=== PATIENT | female | born 1925 | race African-American/Black ===

== ENCOUNTER 2016-03-24 14:56 | Inpatient (IN) | payer MEDICARE, BC ==
[~2016-03-24] VITALS: Ht 162.6 cm; Wt 83.9 kg
[~2016-03-24 14:56] MED LIST: ASPI-1035 PO; ATOR20TA PO; COR12 PO; DONE5TAB3 PO; FURO20TA PO; INSU100C3 SUBCUT; LANTUSUD SUBCUT
[2016-03-24] MEDS ORDERED: METHYLPREDNISOLONE SOD SUCC 125 MG/2 ML VIAL IV STA (15:01)
[2016-03-24] MEDS ORDERED: IPRATROPIUM/ALBUTEROL 0.5-3(2.5)MG/3ML NEB HHN ONE (15:15)
[2016-03-24 15:27] LABS: BASOPHILS % 0.3 % (0.0-2.0); EOSINOPHILS % 2.8 % (0.0-5.0); HEMATOCRIT. 36.7 % (36.0-48.0); HEMOGLOBIN. 11.8 g/dL (12.0-16.0); LYMPHOCYTES % 29.3 % (20.0-50.0); MEAN CORPUSCULAR HEMOGLOBIN 30.3 pg (28.0-32.0); MEAN CORPUSCULAR HGB CONC 32.1 g/dL (31.0-37.0); MEAN CORPUSCULAR VOLUME 94.3 fL (81.0-99.0); MEAN PLATELET VOLUME 10.2 fl (7.4-10.4); MONOCYTES % 4.5 % (2.0-8.0); NEUTROPHILS % 63.1 % (40.0-76.0); PLATELET 202 x1000/uL (130-400); RED BLOOD CELL COUNT 3.89 mill/uL (4.2-5.4); RED CELL DISTRIBUTION WIDTH 17.8 % (11.6-14.6); WHITE BLOOD COUNT 17.4 x1000/uL (4.5-11.0)
[2016-03-24 15:34] LABS: ALBUMIN 2.6 g/dL (3.4-5.0); ANION GAP 14; CARBON DIOXIDE 22 mEq/L (21-32); CHLORIDE 112 mEq/L (98-107); INDEX HEMOLYSI 1 (1-3); INDEX ICTERIC 1 (1-4); INDEX LIPEMIC 1 (1-3); UREA NITROGEN BLOOD 14 mg/dL (7-21)
[2016-03-24 15:42] LABS: ALANINE AMINOTRANSFERASE 18 IU/L (13-61); NT PRO B-TYPE NATRIURETIC PEP 2688 pg/mL (5-125); TROPONIN I 0.12 ng/mL (0.00-0.04); eGFR 57 mL/min (>60)
[2016-03-24 15:43] LABS: D-DIMER 4.81 mg/L FEU (<0.50); INR 1.1; PARTIAL THROMBOPLASTIN TIME 27.1 sec (24.0-34.0); PROTHROMBIN TIME 11.3 sec
[2016-03-24 15:44] LABS: LACTIC ACID 4.6 mmol/L (0.4-2.0)
[2016-03-24 19:06] LABS: BG BASE EXCESS -3.1 mmol/L (-2.0-2.0); BG BILEVEL POS AIRWAY PRESSURE 15/5; BG CARBOXYHEMOGLOBIN 0.3 % (0.5-1.5); BG DEOXYHEMOGLOBIN 1.2 % (0.0-5.0); BG FRACTION INSPIRED OXYGEN 50; BG HCO3 ACT 21.3 mmol/L (22.0-26.0); BG METHEMOGLOBIN 0.5 % (0.0-1.5); BG OXYGEN SATURATION 98.8 % (92.0-98.5); BG PCO2 36.1 mmHg (35.0-45.0); BG PH 7.389 (7.350-7.450); BG PO2 158.9 mmHg (75.0-100.0); BG SAMPLE SITE LEFT RADIAL; BG TOTAL HEMOGLOBIN 11.9 g/dL (12.0-18.0); BG VENT MODE MASK - BIPAP; BG VENT RATE 14 set
[2016-03-24 21:05] LABS: CLARITY URINE CLEAR (CLEAR); COLOR URINE YELLOW (YELLOW); GLUCOSE URINE TRACE (NEGATIVE); KETONES URINE TRACE (NEGATIVE); LEUKOCYTE ESTERASE URINE NEGATIVE (NEGATIVE); NITRITE URINE NEGATIVE (NEGATIVE); OCCULT BLOOD URINE NEGATIVE (NEGATIVE); PH URINE 5.5 (4.5-8.0); PROTEIN URINE 2+ (NEGATIVE); SPECIFIC GRAVITY URINE 1.018 (1.005-1.030); UROBILINOGEN URINE 0.2 E.U./dL (0.2-1.0)
[2016-03-24 21:32] LABS: BACTERIA URINE 1+
[2016-03-24 21:42] LABS: RBC URINE 0-2 /hpf (0-2); WBC URINE 0-2 /hpf (0-2)
[2016-03-24 21:43] LABS: MUCUS URINE TRACE /lpf (< = 2+); SQUAMOUS EPITHELIAL CELL URINE 1+ /lpf (RARE/1+)
[2016-03-25] VITALS (11 sets, daily range): BP systolic 97–139; BP diastolic 51–98
[2016-03-25] MEDS ORDERED: CLONIDINE 0.1MG TABLET PO PRN (02:45)
[2016-03-25] MEDS ORDERED: IPRATROPIUM/ALBUTEROL 0.5-3(2.5)MG/3ML NEB HHN PRN (02:45)
[2016-03-25] MEDS ORDERED: ACETAMINOPHEN 325MG TABLET PO PRN (02:45)
[2016-03-25] MEDS: DIPHENHYDRAMINE 50MG/ML VIAL IV PRN ×2 (03:15→21:46)
[2016-03-25] MEDS: METHYLPREDNISOLONE SOD SUCC 40 MG/ML VIAL IV SCH ×3 (03:37→18:21)
[2016-03-25] MEDS: IPRATROPIUM/ALBUTEROL 0.5-3(2.5)MG/3ML NEB HHN SCH ×5 (04:27→19:53)
[2016-03-25 07:12] LABS: BG METHEMOGLOBIN 0.3 % (0.0-1.5); BG OXYHEMOGLOBIN 89.7 % (94.0-97.0); BG PCO2 32.7 mmHg (35.0-45.0); BG PH 7.405 (7.350-7.450); BG PO2 58.3 mmHg (75.0-100.0); BG SAMPLE SITE RIGHT RADIAL; BG TOTAL HEMOGLOBIN 9.6 g/dL (12.0-18.0); BG VENT MODE NASAL CANNULA
[2016-03-25] MEDS: BLOOD SUGAR DIAGNOSTIC STRIP TEST SCH ×4 (07:30→21:44)
[2016-03-25] MEDS: CARVEDILOL 12.5MG TABLET PO SCH ×2 (09:00→09:05)
[2016-03-25] MEDS: ENOXAPARIN 40MG/0.4ML SYR SUBCUT SCH (09:04)
[2016-03-25] MEDS: ATORVASTATIN CALCIUM 20MG TABLET PO SCH (09:05)
[2016-03-25] MEDS: DONEPEZIL HCL 5MG TABLET PO SCH (09:05)
[2016-03-25] MEDS: ASPIRIN 81MG EC TABLET PO SCH (09:05)
[2016-03-25] MEDS: INSULIN LISPRO 100 UNITS/ML SUBCUT SCH ×3 (09:07→18:29)
[2016-03-25] MEDS: INSULIN DETEMIR UD 100 UNITS/ML SYR SUBCUT SCH ×2 (09:08→09:19)
[2016-03-25 09:46] LABS: BASOPHILS % 0.2 % (0.0-2.0); EOSINOPHILS % 0.1 % (0.0-5.0); HEMATOCRIT. 30.6 % (36.0-48.0); LYMPHOCYTES % 21.4 % (20.0-50.0); MEAN CORPUSCULAR HEMOGLOBIN 30.6 pg (28.0-32.0); MEAN CORPUSCULAR HGB CONC 32.6 g/dL (31.0-37.0); MEAN CORPUSCULAR VOLUME 93.7 fL (81.0-99.0); MEAN PLATELET VOLUME 10.5 fl (7.4-10.4); MONOCYTES % 1.4 % (2.0-8.0); NEUTROPHILS % 76.9 % (40.0-76.0); PLATELET 179 x1000/uL (130-400); RED BLOOD CELL COUNT 3.27 mill/uL (4.2-5.4); RED CELL DISTRIBUTION WIDTH 18.2 % (11.6-14.6); WHITE BLOOD COUNT 13.5 x1000/uL (4.5-11.0)
[2016-03-25 10:13] LABS: ANION GAP 15; CARBON DIOXIDE 22 mEq/L (21-32); CHLORIDE 110 mEq/L (98-107); INDEX HEMOLYSI 1 (1-3); INDEX ICTERIC 1 (1-4); INDEX LIPEMIC 1 (1-3); MAGNESIUM 2.3 mg/dL (1.8-2.4); PHOSPHORUS 3.6 mg/dL (2.5-4.9); UREA NITROGEN BLOOD 18 mg/dL (7-21); eGFR > 60 mL/min (>60)
[2016-03-25] MEDS ORDERED: LACTULOSE 20G/30ML UDC PO PRN (13:15)
[2016-03-25] MEDS: PREGABALIN 50 MG CAPSULE PO SCH ×2 (14:41→21:44)
[2016-03-25] MEDS: DOCUSATE SODIUM 100MG CAPSULE PO SCH (17:00)
[2016-03-26] VITALS (14 sets, daily range): BP systolic 94–139; BP diastolic 46–83
[2016-03-26] MEDS ORDERED: METHYLPREDNISOLONE SOD SUCC 40 MG/ML VIAL IV SCH (03:00)
[2016-03-26] MEDS: METHYLPREDNISOLONE SOD SUCC 40 MG/ML VIAL IV SCH ×3 (03:16→21:29)
[2016-03-26] MEDS: IPRATROPIUM/ALBUTEROL 0.5-3(2.5)MG/3ML NEB HHN SCH ×8 (04:00→21:20)
[2016-03-26 06:31] LABS: BASOPHILS % 0.3 % (0.0-2.0); EOSINOPHILS % 0.1 % (0.0-5.0); HEMATOCRIT. 38.1 % (36.0-48.0); HEMOGLOBIN. 11.8 g/dL (12.0-16.0); LYMPHOCYTES % 16.9 % (20.0-50.0); MEAN CORPUSCULAR HEMOGLOBIN 30.7 pg (28.0-32.0); MEAN CORPUSCULAR VOLUME 98.9 fL (81.0-99.0); MEAN PLATELET VOLUME 10.5 fl (7.4-10.4); MONOCYTES % 4.4 % (2.0-8.0); NEUTROPHILS % 78.3 % (40.0-76.0); PLATELET 201 x1000/uL (130-400); RED BLOOD CELL COUNT 3.85 mill/uL (4.2-5.4); RED CELL DISTRIBUTION WIDTH 19.6 % (11.6-14.6)
[2016-03-26] MEDS: PREGABALIN 50 MG CAPSULE PO SCH ×3 (06:37→21:29)
[2016-03-26 07:09] LABS: CHLORIDE 108 mEq/L (98-107); INDEX HEMOLYSI 2 (1-3); INDEX ICTERIC 1 (1-4); INDEX LIPEMIC 1 (1-3)
[2016-03-26 07:30] LABS: ANION GAP 18; CALCIUM 8.2 mg/dL (8.5-10.1); CARBON DIOXIDE 15 mEq/L (21-32); TROPONIN I 0.08 ng/mL (0.00-0.04); UREA NITROGEN BLOOD 26 mg/dL (7-21); eGFR > 60 mL/min (>60)
[2016-03-26] MEDS: BLOOD SUGAR DIAGNOSTIC STRIP TEST SCH ×4 (07:47→21:50)
[2016-03-26] MEDS ORDERED: FUROSEMIDE 40MG TABLET PO SCH (09:00)
[2016-03-26] MEDS: DOCUSATE SODIUM 100MG CAPSULE PO SCH ×2 (09:16→17:37)
[2016-03-26] MEDS: ATORVASTATIN CALCIUM 20MG TABLET PO SCH (09:16)
[2016-03-26] MEDS: DONEPEZIL HCL 5MG TABLET PO SCH (09:16)
[2016-03-26] MEDS: ASPIRIN 81MG EC TABLET PO SCH (09:16)
[2016-03-26] MEDS: LISINOPRIL 2.5MG TABLET PO SCH (09:16)
[2016-03-26] MEDS: ENOXAPARIN 40MG/0.4ML SYR SUBCUT SCH (09:17)
[2016-03-26] MEDS: INSULIN LISPRO 100 UNITS/ML SUBCUT SCH ×3 (09:18→17:38)
[2016-03-26] MEDS: INSULIN DETEMIR UD 100 UNITS/ML SYR SUBCUT SCH ×2 (09:18→21:44)
[2016-03-26] MEDS ORDERED: LORAZEPAM 2MG/ML CPJ IV PRN (09:59)
[2016-03-26] MEDS ORDERED: INSULIN LISPRO 100 UNITS/ML SUBCUT NR (12:30)
[2016-03-26] MEDS ORDERED: FUROSEMIDE 40MG/4ML VIAL IVP SCH (12:40)
[2016-03-27] VITALS (14 sets, daily range): BP systolic 103–130; BP diastolic 52–82
[2016-03-27] MEDS: IPRATROPIUM/ALBUTEROL 0.5-3(2.5)MG/3ML NEB HHN SCH ×7 (00:13→20:18)
[2016-03-27] MEDS: PREGABALIN 50 MG CAPSULE PO SCH ×3 (05:04→21:18)
[2016-03-27] MEDS: METHYLPREDNISOLONE SOD SUCC 40 MG/ML VIAL IV SCH ×3 (05:04→21:19)
[2016-03-27] MEDS: BLOOD SUGAR DIAGNOSTIC STRIP TEST SCH ×4 (06:42→21:19)
[2016-03-27] MEDS: INSULIN LISPRO 100 UNITS/ML SUBCUT SCH (06:48)
[2016-03-27] MEDS ORDERED: LIDOCAINE HCL/PF 1% 2ML VIAL ONE ×2 (07:00)
[2016-03-27] MEDS: MAGNESIUM/ALUMINUM HYDROXIDE/SIMETHICONE 30ML UDC PO PRN ×3 (07:32→08:31)
[2016-03-27] MEDS: ASPIRIN 81MG EC TABLET PO SCH (08:31)
[2016-03-27] MEDS: DOCUSATE SODIUM 100MG CAPSULE PO SCH ×2 (08:31→17:24)
[2016-03-27] MEDS: ENOXAPARIN 40MG/0.4ML SYR SUBCUT SCH (08:31)
[2016-03-27] MEDS: FUROSEMIDE 40MG/4ML VIAL IVP SCH (08:31)
[2016-03-27] MEDS: DONEPEZIL HCL 5MG TABLET PO SCH (08:32)
[2016-03-27] MEDS: ATORVASTATIN CALCIUM 20MG TABLET PO SCH (08:32)
[2016-03-27] MEDS: LISINOPRIL 2.5MG TABLET PO SCH (08:44)
[2016-03-27] MEDS ORDERED: PREDNISONE 20MG TABLET PO SCH (09:00)
[2016-03-27 09:30] LABS: BG BASE EXCESS 2.1 mmol/L (-2.0-2.0); BG CARBOXYHEMOGLOBIN 0.6 % (0.5-1.5); BG DEOXYHEMOGLOBIN 7.1 % (0.0-5.0); BG FRACTION INSPIRED OXYGEN 32; BG HCO3 ACT 26.1 mmol/L (22.0-26.0); BG METHEMOGLOBIN 0.4 % (0.0-1.5); BG OXYGEN SATURATION 92.8 % (92.0-98.5); BG OXYHEMOGLOBIN 91.9 % (94.0-97.0); BG PCO2 38.5 mmHg (35.0-45.0); BG PH 7.449 (7.350-7.450); BG PO2 66.5 mmHg (75.0-100.0); BG SAMPLE SITE RIGHT RADIAL; BG TOTAL HEMOGLOBIN 12.6 g/dL (12.0-18.0); BG VENT MODE NASAL CANNULA
[2016-03-27] MEDS ORDERED: ONDANSETRON HCL 4MG/2ML VIAL IV PRN (09:30)
[2016-03-27] MEDS: INSULIN DETEMIR UD 100 UNITS/ML SYR SUBCUT SCH (10:07)
[2016-03-27 10:53] LABS: BASOPHILS % 0.2 % (0.0-2.0); HEMATOCRIT. 33.5 % (36.0-48.0); HEMOGLOBIN. 10.9 g/dL (12.0-16.0); LYMPHOCYTES % 10.4 % (20.0-50.0); MEAN CORPUSCULAR HGB CONC 32.4 g/dL (31.0-37.0); MEAN CORPUSCULAR VOLUME 92.6 fL (81.0-99.0); MEAN PLATELET VOLUME 10.6 fl (7.4-10.4); MONOCYTES % 5.3 % (2.0-8.0); NEUTROPHILS % 84.1 % (40.0-76.0); PLATELET 221 x1000/uL (130-400); RED BLOOD CELL COUNT 3.61 mill/uL (4.2-5.4); RED CELL DISTRIBUTION WIDTH 17.8 % (11.6-14.6); WHITE BLOOD COUNT 17.4 x1000/uL (4.5-11.0)
[2016-03-27 11:01] LABS: ANION GAP 11; CALCIUM 8.4 mg/dL (8.5-10.1); CARBON DIOXIDE 32 mEq/L (21-32); CHLORIDE 104 mEq/L (98-107); INDEX HEMOLYSI 1 (1-3); INDEX ICTERIC 1 (1-4); INDEX LIPEMIC 1 (1-3); MAGNESIUM 2.3 mg/dL (1.8-2.4); PHOSPHORUS 3.1 mg/dL (2.5-4.9); UREA NITROGEN BLOOD 26 mg/dL (7-21); eGFR > 60 mL/min (>60)
[2016-03-27] MEDS ORDERED: CALCIUM CARBONATE 500MG TABLET CHEW PO SCH (12:30)
[2016-03-27] MEDS ORDERED: INSULIN LISPRO 100 UNITS/ML SUBCUT NR (12:45)
[2016-03-27] MEDS: PANTOPRAZOLE SODIUM 40 MG/VIAL IV SCH (12:53)
[2016-03-27] MEDS: CALCIUM CARBONATE 500MG TABLET CHEW PO SCH ×2 (17:24→21:19)
[2016-03-27] MEDS: SPIRONOLACTONE 25MG TABLET PO SCH (17:24)
[2016-03-27] MEDS: MAGNESIUM HYDROXIDE 400MG/5ML 30ML UDC PO PRN (21:18)
[2016-03-27] MEDS: DIPHENHYDRAMINE 50MG/ML VIAL IV PRN (21:19)
[2016-03-27] MEDS: ISOSORB DINIT/HYDRALAZINE HCL 20/37.5MG TABLET PO SCH (21:19)
[2016-03-27] MEDS ORDERED: INSULIN DETEMIR UD 100 UNITS/ML SYR SUBCUT SCH (22:00)
[2016-03-28] VITALS (12 sets, daily range): BP systolic 94–134; BP diastolic 26–80
[2016-03-28] MEDS: IPRATROPIUM/ALBUTEROL 0.5-3(2.5)MG/3ML NEB HHN SCH ×8 (00:01→23:04)
[2016-03-28] MEDS: PREGABALIN 50 MG CAPSULE PO SCH ×3 (05:29→21:20)
[2016-03-28] MEDS: METHYLPREDNISOLONE SOD SUCC 40 MG/ML VIAL IV SCH ×3 (05:30→21:20)
[2016-03-28] MEDS: ISOSORB DINIT/HYDRALAZINE HCL 20/37.5MG TABLET PO SCH ×3 (05:31→21:20)
[2016-03-28] MEDS: CALCIUM CARBONATE 500MG TABLET CHEW PO SCH ×4 (07:36→21:20)
[2016-03-28] MEDS: BLOOD SUGAR DIAGNOSTIC STRIP TEST SCH ×3 (07:37→17:40)
[2016-03-28 07:39] LABS: BASOPHILS % 0.1 % (0.0-2.0); HEMOGLOBIN. 9.6 g/dL (12.0-16.0); LYMPHOCYTES % 14.9 % (20.0-50.0); MEAN CORPUSCULAR HEMOGLOBIN 30.1 pg (28.0-32.0); MEAN CORPUSCULAR HGB CONC 32.1 g/dL (31.0-37.0); MEAN CORPUSCULAR VOLUME 93.9 fL (81.0-99.0); MEAN PLATELET VOLUME 10.8 fl (7.4-10.4); MONOCYTES % 4.7 % (2.0-8.0); NEUTROPHILS % 80.3 % (40.0-76.0); PLATELET 199 x1000/uL (130-400); RED CELL DISTRIBUTION WIDTH 18.1 % (11.6-14.6); WHITE BLOOD COUNT 11.5 x1000/uL (4.5-11.0)
[2016-03-28 08:29] LABS: CALCIUM 8.5 mg/dL (8.5-10.1); MAGNESIUM 2.6 mg/dL (1.8-2.4); PHOSPHORUS 3.7 mg/dL (2.5-4.9)
[2016-03-28] MEDS: INSULIN LISPRO 100 UNITS/ML SUBCUT SCH ×3 (08:52→17:49)
[2016-03-28] MEDS: PANTOPRAZOLE SODIUM 40 MG/VIAL IV SCH (08:54)
[2016-03-28] MEDS: DOCUSATE SODIUM 100MG CAPSULE PO SCH ×2 (08:54→16:18)
[2016-03-28] MEDS: FUROSEMIDE 40MG/4ML VIAL IVP SCH (08:54)
[2016-03-28] MEDS: LISINOPRIL 2.5MG TABLET PO SCH (08:55)
[2016-03-28] MEDS: DONEPEZIL HCL 5MG TABLET PO SCH (08:55)
[2016-03-28] MEDS: ASPIRIN 81MG EC TABLET PO SCH (08:55)
[2016-03-28] MEDS: ATORVASTATIN CALCIUM 20MG TABLET PO SCH (08:55)
[2016-03-28] MEDS: ENOXAPARIN 40MG/0.4ML SYR SUBCUT SCH (08:56)
[2016-03-28] MEDS: SPIRONOLACTONE 25MG TABLET PO SCH (08:56)
[2016-03-28] MEDS ORDERED: INSULIN DETEMIR UD 100 UNITS/ML SYR SUBCUT SCH ×2 (10:00→22:00)
[2016-03-28] MEDS ORDERED: INSULIN LISPRO 100 UNITS/ML SUBCUT SCH ×3 (10:15→18:00)
[2016-03-28] MEDS: GUAIFENESIN 200MG/10ML SUGAR FREE UDC PO PRN ×2 (10:46→19:25)
[2016-03-28] MEDS ORDERED: SODIUM POLYSTYRENE SULFONATE 15 G/60 ML BOT PO SCH (13:45)
[2016-03-28] MEDS: INSULIN DETEMIR UD 100 UNITS/ML SYR SUBCUT SCH (21:21)
[2016-03-28] MEDS: DIPHENHYDRAMINE 50MG/ML VIAL IV PRN (22:30)
[2016-03-29] VITALS (12 sets, daily range): BP systolic 104–131; BP diastolic 59–71
[2016-03-29] MEDS: IPRATROPIUM/ALBUTEROL 0.5-3(2.5)MG/3ML NEB HHN SCH ×5 (02:04→20:50)
[2016-03-29] MEDS: PREGABALIN 50 MG CAPSULE PO SCH ×3 (06:36→21:11)
[2016-03-29] MEDS: METHYLPREDNISOLONE SOD SUCC 40 MG/ML VIAL IV SCH ×3 (06:36→21:10)
[2016-03-29] MEDS: CALCIUM CARBONATE 500MG TABLET CHEW PO SCH ×4 (06:37→21:10)
[2016-03-29] MEDS: ISOSORB DINIT/HYDRALAZINE HCL 20/37.5MG TABLET PO SCH ×2 (06:38→17:00)
[2016-03-29 06:58] LABS: BASOPHILS % 0.1 % (0.0-2.0); HEMATOCRIT. 30.6 % (36.0-48.0); LYMPHOCYTES % 16.8 % (20.0-50.0); MEAN CORPUSCULAR HEMOGLOBIN 30.2 pg (28.0-32.0); MEAN CORPUSCULAR HGB CONC 32.6 g/dL (31.0-37.0); MEAN CORPUSCULAR VOLUME 92.7 fL (81.0-99.0); MEAN PLATELET VOLUME 10.8 fl (7.4-10.4); MONOCYTES % 4.9 % (2.0-8.0); NEUTROPHILS % 78.2 % (40.0-76.0); PLATELET 210 x1000/uL (130-400); RED CELL DISTRIBUTION WIDTH 17.8 % (11.6-14.6)
[2016-03-29 07:13] LABS: ANION GAP 12; CALCIUM 8.5 mg/dL (8.5-10.1); CARBON DIOXIDE 33 mEq/L (21-32); CHLORIDE 96 mEq/L (98-107); INDEX HEMOLYSI 1 (1-3); INDEX ICTERIC 1 (1-4); INDEX LIPEMIC 1 (1-3); UREA NITROGEN BLOOD 34 mg/dL (7-21); eGFR > 60 mL/min (>60)
[2016-03-29] MEDS: FAMOTIDINE 20MG TABLET PO SCH (08:43)
[2016-03-29] MEDS: DOCUSATE SODIUM 100MG CAPSULE PO SCH ×2 (08:43→17:49)
[2016-03-29] MEDS: ATORVASTATIN CALCIUM 20MG TABLET PO SCH (08:43)
[2016-03-29] MEDS: ENOXAPARIN 40MG/0.4ML SYR SUBCUT SCH (08:43)
[2016-03-29] MEDS: FUROSEMIDE 40MG/4ML VIAL IVP SCH (08:43)
[2016-03-29] MEDS: ASPIRIN 81MG EC TABLET PO SCH (08:43)
[2016-03-29] MEDS: DONEPEZIL HCL 5MG TABLET PO SCH (08:44)
[2016-03-29] MEDS: INSULIN LISPRO 100 UNITS/ML SUBCUT SCH ×3 (08:45→18:45)
[2016-03-29] MEDS: LISINOPRIL 2.5MG TABLET PO SCH (08:46)
[2016-03-29] MEDS: BLOOD SUGAR DIAGNOSTIC STRIP TEST SCH ×3 (12:39→21:11)
[2016-03-29] MEDS: MAGNESIUM HYDROXIDE 400MG/5ML 30ML UDC PO PRN (17:49)
[2016-03-29] MEDS: INSULIN DETEMIR UD 100 UNITS/ML SYR SUBCUT SCH (21:16)
[2016-03-29] MEDS: DIPHENHYDRAMINE 50MG/ML VIAL IV PRN (22:09)
[2016-03-30] VITALS (12 sets, daily range): BP systolic 110–158; BP diastolic 54–97
[2016-03-30] MEDS: IPRATROPIUM/ALBUTEROL 0.5-3(2.5)MG/3ML NEB HHN SCH ×6 (00:40→20:16)
[2016-03-30] MEDS: PREGABALIN 50 MG CAPSULE PO SCH ×3 (05:14→21:23)
[2016-03-30] MEDS: METHYLPREDNISOLONE SOD SUCC 40 MG/ML VIAL IV SCH ×3 (05:15→21:23)
[2016-03-30 06:11] LABS: BASOPHILS % 0.2 % (0.0-2.0); HEMATOCRIT. 29.9 % (36.0-48.0); HEMOGLOBIN. 9.7 g/dL (12.0-16.0); LYMPHOCYTES % 15.6 % (20.0-50.0); MEAN CORPUSCULAR HGB CONC 32.4 g/dL (31.0-37.0); MEAN CORPUSCULAR VOLUME 92.7 fL (81.0-99.0); MEAN PLATELET VOLUME 10.8 fl (7.4-10.4); MONOCYTES % 5.8 % (2.0-8.0); NEUTROPHILS % 78.4 % (40.0-76.0); PLATELET 200 x1000/uL (130-400); RED BLOOD CELL COUNT 3.23 mill/uL (4.2-5.4); RED CELL DISTRIBUTION WIDTH 17.8 % (11.6-14.6); WHITE BLOOD COUNT 12.5 x1000/uL (4.5-11.0)
[2016-03-30] MEDS: CALCIUM CARBONATE 500MG TABLET CHEW PO SCH ×4 (06:30→21:23)
[2016-03-30 06:37] LABS: CALCIUM 8.1 mg/dL (8.5-10.1)
[2016-03-30] MEDS: INSULIN LISPRO 100 UNITS/ML SUBCUT SCH ×3 (07:30→17:30)
[2016-03-30] MEDS: BLOOD SUGAR DIAGNOSTIC STRIP TEST SCH ×4 (07:30→21:16)
[2016-03-30] MEDS: FAMOTIDINE 20MG TABLET PO SCH (10:48)
[2016-03-30] MEDS: FUROSEMIDE 40MG/4ML VIAL IVP SCH (10:48)
[2016-03-30] MEDS: DONEPEZIL HCL 5MG TABLET PO SCH (10:49)
[2016-03-30] MEDS: ISOSORB DINIT/HYDRALAZINE HCL 20/37.5MG TABLET PO SCH ×2 (10:49→18:28)
[2016-03-30] MEDS: ENOXAPARIN 40MG/0.4ML SYR SUBCUT SCH (10:50)
[2016-03-30] MEDS: ATORVASTATIN CALCIUM 20MG TABLET PO SCH (10:50)
[2016-03-30] MEDS: DOCUSATE SODIUM 100MG CAPSULE PO SCH ×2 (10:50→18:25)
[2016-03-30] MEDS: ASPIRIN 81MG EC TABLET PO SCH (10:58)
[2016-03-30] MEDS: DIPHENHYDRAMINE 50MG/ML VIAL IV PRN (21:24)
[2016-03-30] MEDS: INSULIN DETEMIR UD 100 UNITS/ML SYR SUBCUT SCH (21:25)
[2016-03-30] MEDS ORDERED: INSULIN LISPRO 100 UNITS/ML SUBCUT SCH (21:44)
[2016-03-31] VITALS (12 sets, daily range): BP systolic 102–127; BP diastolic 65–74
[2016-03-31] MEDS: IPRATROPIUM/ALBUTEROL 0.5-3(2.5)MG/3ML NEB HHN SCH ×6 (03:28→20:12)
[2016-03-31] MEDS: PREGABALIN 50 MG CAPSULE PO SCH ×3 (05:41→21:31)
[2016-03-31 06:37] LABS: BASOPHILS % 0.2 % (0.0-2.0); EOSINOPHILS % 0.2 % (0.0-5.0); HEMATOCRIT. 31.3 % (36.0-48.0); HEMOGLOBIN. 10.4 g/dL (12.0-16.0); MEAN CORPUSCULAR HEMOGLOBIN 30.7 pg (28.0-32.0); MEAN CORPUSCULAR HGB CONC 33.3 g/dL (31.0-37.0); MEAN PLATELET VOLUME 10.6 fl (7.4-10.4); MONOCYTES % 8.7 % (2.0-8.0); NEUTROPHILS % 66.9 % (40.0-76.0); PLATELET 207 x1000/uL (130-400); RED CELL DISTRIBUTION WIDTH 17.3 % (11.6-14.6); WHITE BLOOD COUNT 14.1 x1000/uL (4.5-11.0)
[2016-03-31 07:05] LABS: CALCIUM 8.8 mg/dL (8.5-10.1)
[2016-03-31] MEDS: INSULIN LISPRO 100 UNITS/ML SUBCUT SCH ×3 (07:30→18:12)
[2016-03-31] MEDS: BLOOD SUGAR DIAGNOSTIC STRIP TEST SCH ×4 (08:23→21:30)
[2016-03-31] MEDS: ISOSORB DINIT/HYDRALAZINE HCL 20/37.5MG TABLET PO SCH ×2 (09:00→16:51)
[2016-03-31] MEDS: FUROSEMIDE 40MG/4ML VIAL IVP SCH (09:13)
[2016-03-31] MEDS: GUAIFENESIN 200MG/10ML SUGAR FREE UDC PO PRN (09:13)
[2016-03-31] MEDS: ENOXAPARIN 40MG/0.4ML SYR SUBCUT SCH (09:13)
[2016-03-31] MEDS: ATORVASTATIN CALCIUM 20MG TABLET PO SCH (09:14)
[2016-03-31] MEDS: DONEPEZIL HCL 5MG TABLET PO SCH (09:14)
[2016-03-31] MEDS: CALCIUM CARBONATE 500MG TABLET CHEW PO SCH ×4 (09:14→20:19)
[2016-03-31] MEDS: DOCUSATE SODIUM 100MG CAPSULE PO SCH ×2 (09:14→16:52)
[2016-03-31] MEDS: FAMOTIDINE 20MG TABLET PO SCH (09:14)
[2016-03-31] MEDS: PREDNISONE 20MG TABLET PO SCH (09:14)
[2016-03-31] MEDS: ASPIRIN 81MG EC TABLET PO SCH (09:14)
[2016-03-31] MEDS: MAGNESIUM HYDROXIDE 400MG/5ML 30ML UDC PO PRN (16:52)
[2016-03-31] MEDS: GUAIFENESIN/DM 600MG/30MG ER TAB 12HR PO SCH (20:19)
[2016-03-31] MEDS: LACTULOSE 20G/30ML UDC PO SCH (20:19)
[2016-03-31] MEDS: INSULIN DETEMIR UD 100 UNITS/ML SYR SUBCUT SCH (21:32)
[2016-03-31] MEDS: DIPHENHYDRAMINE 50MG/ML VIAL IV PRN (22:59)
[2016-04-01] VITALS (12 sets, daily range): BP systolic 103–131; BP diastolic 63–81
[2016-04-01] MEDS: IPRATROPIUM/ALBUTEROL 0.5-3(2.5)MG/3ML NEB HHN SCH ×6 (04:00→20:11)
[2016-04-01] MEDS: PREGABALIN 50 MG CAPSULE PO SCH ×3 (06:06→21:22)
[2016-04-01 06:46] LABS: BASOPHILS % 0.1 % (0.0-2.0); EOSINOPHILS % 1.2 % (0.0-5.0); HEMATOCRIT. 34.2 % (36.0-48.0); HEMOGLOBIN. 11.2 g/dL (12.0-16.0); MEAN CORPUSCULAR HEMOGLOBIN 30.3 pg (28.0-32.0); MEAN CORPUSCULAR HGB CONC 32.9 g/dL (31.0-37.0); MEAN CORPUSCULAR VOLUME 92.3 fL (81.0-99.0); MEAN PLATELET VOLUME 10.6 fl (7.4-10.4); MONOCYTES % 7.1 % (2.0-8.0); NEUTROPHILS % 67.6 % (40.0-76.0); PLATELET 218 x1000/uL (130-400); RED CELL DISTRIBUTION WIDTH 17.7 % (11.6-14.6); WHITE BLOOD COUNT 14.7 x1000/uL (4.5-11.0)
[2016-04-01 06:59] LABS: ANION GAP 8; CALCIUM 8.6 mg/dL (8.5-10.1); CARBON DIOXIDE 37 mEq/L (21-32); CHLORIDE 98 mEq/L (98-107); INDEX HEMOLYSI 1 (1-3); INDEX ICTERIC 1 (1-4); INDEX LIPEMIC 1 (1-3); UREA NITROGEN BLOOD 35 mg/dL (7-21); eGFR > 60 mL/min (>60)
[2016-04-01] MEDS: INSULIN LISPRO 100 UNITS/ML SUBCUT SCH ×3 (07:30→17:28)
[2016-04-01] MEDS: BLOOD SUGAR DIAGNOSTIC STRIP TEST SCH ×4 (07:30→20:38)
[2016-04-01] MEDS: LACTULOSE 20G/30ML UDC PO SCH (09:37)
[2016-04-01] MEDS: DOCUSATE SODIUM 100MG CAPSULE PO SCH ×2 (09:37→17:05)
[2016-04-01] MEDS: CALCIUM CARBONATE 500MG TABLET CHEW PO SCH ×4 (09:37→20:38)
[2016-04-01] MEDS: ATORVASTATIN CALCIUM 20MG TABLET PO SCH (09:37)
[2016-04-01] MEDS: PREDNISONE 20MG TABLET PO SCH (09:38)
[2016-04-01] MEDS: ASPIRIN 81MG EC TABLET PO SCH (09:38)
[2016-04-01] MEDS: DONEPEZIL HCL 5MG TABLET PO SCH (09:38)
[2016-04-01] MEDS: FAMOTIDINE 20MG TABLET PO SCH (09:38)
[2016-04-01] MEDS: ISOSORB DINIT/HYDRALAZINE HCL 20/37.5MG TABLET PO SCH ×2 (09:38→17:05)
[2016-04-01] MEDS: ENOXAPARIN 40MG/0.4ML SYR SUBCUT SCH (09:39)
[2016-04-01] MEDS: GUAIFENESIN/DM 600MG/30MG ER TAB 12HR PO SCH ×2 (10:00→20:37)
[2016-04-01] MEDS: INSULIN DETEMIR UD 100 UNITS/ML SYR SUBCUT SCH (21:24)
[2016-04-01] MEDS: DIPHENHYDRAMINE 50MG/ML VIAL IV PRN (21:25)
[2016-04-02] VITALS (13 sets, daily range): BP systolic 102–148; BP diastolic 57–70
[2016-04-02] MEDS: IPRATROPIUM/ALBUTEROL 0.5-3(2.5)MG/3ML NEB HHN SCH ×6 (04:00→20:16)
[2016-04-02] MEDS: PREGABALIN 50 MG CAPSULE PO SCH ×3 (05:29→21:30)
[2016-04-02] MEDS: CALCIUM CARBONATE 500MG TABLET CHEW PO SCH ×4 (06:40→20:17)
[2016-04-02 07:23] LABS: BASOPHILS % 0.6 % (0.0-2.0); EOSINOPHILS % 1.6 % (0.0-5.0); HEMATOCRIT. 32.7 % (36.0-48.0); HEMOGLOBIN. 10.8 g/dL (12.0-16.0); LYMPHOCYTES % 17.6 % (20.0-50.0); MEAN CORPUSCULAR HEMOGLOBIN 30.6 pg (28.0-32.0); MEAN CORPUSCULAR HGB CONC 33.1 g/dL (31.0-37.0); MEAN CORPUSCULAR VOLUME 92.4 fL (81.0-99.0); MEAN PLATELET VOLUME 10.8 fl (7.4-10.4); MONOCYTES % 5.3 % (2.0-8.0); NEUTROPHILS % 74.9 % (40.0-76.0); PLATELET 201 x1000/uL (130-400); RED BLOOD CELL COUNT 3.54 mill/uL (4.2-5.4); RED CELL DISTRIBUTION WIDTH 17.4 % (11.6-14.6); WHITE BLOOD COUNT 17.4 x1000/uL (4.5-11.0)
[2016-04-02] MEDS: INSULIN LISPRO 100 UNITS/ML SUBCUT SCH ×3 (07:30→18:57)
[2016-04-02] MEDS: BLOOD SUGAR DIAGNOSTIC STRIP TEST SCH ×4 (07:30→21:33)
[2016-04-02 08:49] LABS: ANION GAP 7; CALCIUM 8.6 mg/dL (8.5-10.1); CARBON DIOXIDE 37 mEq/L (21-32); CHLORIDE 99 mEq/L (98-107); INDEX HEMOLYSI 1 (1-3); INDEX ICTERIC 1 (1-4); INDEX LIPEMIC 1 (1-3); UREA NITROGEN BLOOD 27 mg/dL (7-21); eGFR > 60 mL/min (>60)
[2016-04-02] MEDS: ASPIRIN 81MG EC TABLET PO SCH (10:17)
[2016-04-02] MEDS: ISOSORB DINIT/HYDRALAZINE HCL 20/37.5MG TABLET PO SCH ×2 (10:17→16:31)
[2016-04-02] MEDS: DOCUSATE SODIUM 100MG CAPSULE PO SCH ×2 (10:17→16:30)
[2016-04-02] MEDS: LACTULOSE 20G/30ML UDC PO SCH (10:17)
[2016-04-02] MEDS: DONEPEZIL HCL 5MG TABLET PO SCH (10:17)
[2016-04-02] MEDS: FAMOTIDINE 20MG TABLET PO SCH (10:18)
[2016-04-02] MEDS: ENOXAPARIN 40MG/0.4ML SYR SUBCUT SCH (10:18)
[2016-04-02] MEDS: ATORVASTATIN CALCIUM 20MG TABLET PO SCH (10:18)
[2016-04-02] MEDS: PREDNISONE 20MG TABLET PO SCH (10:18)
[2016-04-02] MEDS: GUAIFENESIN/DM 600MG/30MG ER TAB 12HR PO SCH ×2 (10:28→20:16)
[2016-04-02] MEDS: MAGNESIUM/ALUMINUM HYDROXIDE/SIMETHICONE 30ML UDC PO PRN (16:38)
[2016-04-02] MEDS: INSULIN DETEMIR UD 100 UNITS/ML SYR SUBCUT SCH (21:33)
[2016-04-02] MEDS: MAGNESIUM HYDROXIDE 400MG/5ML 30ML UDC PO PRN (21:48)
[2016-04-02] MEDS: DIPHENHYDRAMINE 50MG/ML VIAL IV PRN (22:35)
[2016-04-03] VITALS (12 sets, daily range): BP systolic 93–124; BP diastolic 56–68
[2016-04-03] MEDS: IPRATROPIUM/ALBUTEROL 0.5-3(2.5)MG/3ML NEB HHN SCH ×6 (04:00→20:50)
[2016-04-03] MEDS: PREGABALIN 50 MG CAPSULE PO SCH ×3 (05:06→21:15)
[2016-04-03 07:05] LABS: BASOPHILS % 0.3 % (0.0-2.0); EOSINOPHILS % 0.4 % (0.0-5.0); HEMATOCRIT. 32.2 % (36.0-48.0); HEMOGLOBIN. 10.5 g/dL (12.0-16.0); LYMPHOCYTES % 19.4 % (20.0-50.0); MEAN CORPUSCULAR HEMOGLOBIN 30.3 pg (28.0-32.0); MEAN CORPUSCULAR HGB CONC 32.5 g/dL (31.0-37.0); MEAN CORPUSCULAR VOLUME 93.2 fL (81.0-99.0); MEAN PLATELET VOLUME 11.3 fl (7.4-10.4); NEUTROPHILS % 73.9 % (40.0-76.0); PLATELET 218 x1000/uL (130-400); RED BLOOD CELL COUNT 3.45 mill/uL (4.2-5.4); RED CELL DISTRIBUTION WIDTH 17.7 % (11.6-14.6); WHITE BLOOD COUNT 14.9 x1000/uL (4.5-11.0)
[2016-04-03 07:23] LABS: ANION GAP 10; CALCIUM 8.4 mg/dL (8.5-10.1); CARBON DIOXIDE 33 mEq/L (21-32); CHLORIDE 100 mEq/L (98-107); INDEX HEMOLYSI 1 (1-3); INDEX ICTERIC 1 (1-4); INDEX LIPEMIC 1 (1-3); UREA NITROGEN BLOOD 27 mg/dL (7-21); eGFR > 60 mL/min (>60)
[2016-04-03] MEDS: INSULIN LISPRO 100 UNITS/ML SUBCUT SCH ×3 (07:30→18:08)
[2016-04-03] MEDS: BLOOD SUGAR DIAGNOSTIC STRIP TEST SCH ×4 (08:15→21:21)
[2016-04-03] MEDS: GUAIFENESIN/DM 600MG/30MG ER TAB 12HR PO SCH ×2 (08:43→21:15)
[2016-04-03] MEDS: CALCIUM CARBONATE 500MG TABLET CHEW PO SCH ×4 (08:43→21:15)
[2016-04-03] MEDS: DONEPEZIL HCL 5MG TABLET PO SCH (08:44)
[2016-04-03] MEDS: ISOSORB DINIT/HYDRALAZINE HCL 20/37.5MG TABLET PO SCH ×2 (08:44→18:07)
[2016-04-03] MEDS: PREDNISONE 20MG TABLET PO SCH (08:45)
[2016-04-03] MEDS: ATORVASTATIN CALCIUM 20MG TABLET PO SCH (08:45)
[2016-04-03] MEDS: ASPIRIN 81MG EC TABLET PO SCH (08:45)
[2016-04-03] MEDS: DOCUSATE SODIUM 100MG CAPSULE PO SCH ×2 (08:45→18:06)
[2016-04-03] MEDS: LACTULOSE 20G/30ML UDC PO SCH (08:45)
[2016-04-03] MEDS: FAMOTIDINE 20MG TABLET PO SCH (08:45)
[2016-04-03] MEDS: ENOXAPARIN 40MG/0.4ML SYR SUBCUT SCH (08:45)
[2016-04-03 19:06] LABS: CLARITY URINE CLOUDY (CLEAR); COLOR URINE YELLOW (YELLOW); GLUCOSE URINE 2+ (NEGATIVE); KETONES URINE NEGATIVE (NEGATIVE); LEUKOCYTE ESTERASE URINE 2+ (NEGATIVE); NITRITE URINE NEGATIVE (NEGATIVE); OCCULT BLOOD URINE NEGATIVE (NEGATIVE); PH URINE 6.5 (4.5-8.0); PROTEIN URINE NEGATIVE (NEGATIVE); SPECIFIC GRAVITY URINE 1.021 (1.005-1.030); UROBILINOGEN URINE 0.2 E.U./dL (0.2-1.0)
[2016-04-03 20:24] LABS: BACTERIA URINE 3+; RBC URINE 0-2 /hpf (0-2); SQUAMOUS EPITHELIAL CELL URINE 1+ /lpf (RARE/1+)
[2016-04-03] MEDS: INSULIN DETEMIR UD 100 UNITS/ML SYR SUBCUT SCH (21:21)
[2016-04-03] MEDS: DIPHENHYDRAMINE 50MG/ML VIAL IV PRN (22:21)
[2016-04-03] MEDS: GUAIFENESIN 200MG/10ML SUGAR FREE UDC PO PRN ×2 (22:38→22:39)
[2016-04-04] VITALS (15 sets, daily range): BP systolic 101–132; BP diastolic 50–78
[2016-04-04] MEDS: IPRATROPIUM/ALBUTEROL 0.5-3(2.5)MG/3ML NEB HHN SCH ×5 (04:00→20:20)
[2016-04-04] MEDS: CALCIUM CARBONATE 500MG TABLET CHEW PO SCH ×4 (06:40→20:55)
[2016-04-04] MEDS: PREGABALIN 50 MG CAPSULE PO SCH ×3 (06:40→21:03)
[2016-04-04] MEDS: BLOOD SUGAR DIAGNOSTIC STRIP TEST SCH ×4 (07:26→21:02)
[2016-04-04] MEDS: INSULIN LISPRO 100 UNITS/ML SUBCUT SCH ×3 (07:30→17:25)
[2016-04-04] MEDS: LACTULOSE 20G/30ML UDC PO SCH (08:24)
[2016-04-04] MEDS: DOCUSATE SODIUM 100MG CAPSULE PO SCH ×2 (08:25→17:24)
[2016-04-04] MEDS: ASPIRIN 81MG EC TABLET PO SCH (08:25)
[2016-04-04] MEDS: DONEPEZIL HCL 5MG TABLET PO SCH (08:25)
[2016-04-04] MEDS: ISOSORB DINIT/HYDRALAZINE HCL 20/37.5MG TABLET PO SCH ×2 (08:25→17:24)
[2016-04-04] MEDS: ENOXAPARIN 40MG/0.4ML SYR SUBCUT SCH (08:25)
[2016-04-04] MEDS: GUAIFENESIN/DM 600MG/30MG ER TAB 12HR PO SCH ×2 (08:25→20:55)
[2016-04-04] MEDS: ATORVASTATIN CALCIUM 20MG TABLET PO SCH (08:25)
[2016-04-04] MEDS: PREDNISONE 20MG TABLET PO SCH (08:25)
[2016-04-04] MEDS: FAMOTIDINE 20MG TABLET PO SCH (08:27)
[2016-04-04] MEDS ORDERED: DEXTROSE 50% WATER 50ML SYRINGE IV PRN (09:30)
[2016-04-04 12:25] LABS: BASOPHILS % 0.1 % (0.0-2.0); EOSINOPHILS % 1.1 % (0.0-5.0); HEMATOCRIT. 35.7 % (36.0-48.0); HEMOGLOBIN. 11.4 g/dL (12.0-16.0); LYMPHOCYTES % 10.4 % (20.0-50.0); MEAN CORPUSCULAR HEMOGLOBIN 30.6 pg (28.0-32.0); MEAN CORPUSCULAR VOLUME 95.4 fL (81.0-99.0); MONOCYTES % 4.1 % (2.0-8.0); NEUTROPHILS % 84.3 % (40.0-76.0); PLATELET 223 x1000/uL (130-400); RED BLOOD CELL COUNT 3.74 mill/uL (4.2-5.4); WHITE BLOOD COUNT 21.1 x1000/uL (4.5-11.0)
[2016-04-04 12:41] LABS: ANION GAP 10; CALCIUM 8.5 mg/dL (8.5-10.1); CARBON DIOXIDE 31 mEq/L (21-32); CHLORIDE 98 mEq/L (98-107); INDEX HEMOLYSI 1 (1-3); INDEX ICTERIC 1 (1-4); INDEX LIPEMIC 1 (1-3); UREA NITROGEN BLOOD 29 mg/dL (7-21); eGFR > 60 mL/min (>60)
[2016-04-04] MEDS: LEVOFLOXACIN 500MG PREMIX 100 ML IV SCH (14:31)
[2016-04-04] MEDS: INSULIN DETEMIR UD 100 UNITS/ML SYR SUBCUT SCH (21:05)
[2016-04-04] MEDS: DIPHENHYDRAMINE 50MG/ML VIAL IV PRN (22:24)
[2016-04-05] VITALS (12 sets, daily range): BP systolic 93–118; BP diastolic 53–70
[2016-04-05] MEDS: IPRATROPIUM/ALBUTEROL 0.5-3(2.5)MG/3ML NEB HHN SCH ×4 (04:22→11:43)
[2016-04-05] MEDS: BLOOD SUGAR DIAGNOSTIC STRIP TEST SCH ×2 (06:42→11:42)
[2016-04-05] MEDS: CALCIUM CARBONATE 500MG TABLET CHEW PO SCH ×2 (06:46→12:14)
[2016-04-05] MEDS: PREGABALIN 50 MG CAPSULE PO SCH ×2 (06:46→14:19)
[2016-04-05] MEDS: INSULIN LISPRO 100 UNITS/ML SUBCUT SCH ×2 (06:50→12:15)
[2016-04-05] MEDS: PREDNISONE 20MG TABLET PO SCH (08:37)
[2016-04-05] MEDS: ISOSORB DINIT/HYDRALAZINE HCL 20/37.5MG TABLET PO SCH (08:37)
[2016-04-05] MEDS: FAMOTIDINE 20MG TABLET PO SCH (08:37)
[2016-04-05] MEDS: ASPIRIN 81MG EC TABLET PO SCH (08:37)
[2016-04-05] MEDS: LACTULOSE 20G/30ML UDC PO SCH (08:37)
[2016-04-05] MEDS: ATORVASTATIN CALCIUM 20MG TABLET PO SCH (08:37)
[2016-04-05] MEDS: DOCUSATE SODIUM 100MG CAPSULE PO SCH (08:37)
[2016-04-05] MEDS: DONEPEZIL HCL 5MG TABLET PO SCH (08:37)
[2016-04-05] MEDS: GUAIFENESIN/DM 600MG/30MG ER TAB 12HR PO SCH (08:39)
[2016-04-05] MEDS ORDERED: ENOXAPARIN 40MG/0.4ML SYR SUBCUT SCH (09:00)
[2016-04-05] MEDS: LEVOFLOXACIN 500MG PREMIX 100 ML IV SCH (12:22)
== END 2016-04-05 15:05 | disposition home or self-care (01) | DRG 291 ==
LOC: ER 14:56 → 5EST 20:14
PROVIDERS: ADMIT Internal Medicine; ATTEND Internal Medicine
PROC: 02HV33Z Insertion of Infusion Device into Superior Vena Cava, Percutaneous Approach (ICD-10-PCS; principal; 2016-03-24)
PROC: 5A09457 Assistance with Respiratory Ventilation, 24-96 Consecutive Hours, Continuous Positive Airway Pressure (ICD-10-PCS; 2016-03-24)
DX: I13.0 Hypertensive heart and chronic kidney disease with heart failure and stage 1 through stage 4 chronic kidney disease, or unspecified chronic kidney disease (principal); J96.21 Acute and chronic respiratory failure with hypoxia; I50.43 Acute on chronic combined systolic (congestive) and diastolic (congestive) heart failure; J44.1 Chronic obstructive pulmonary disease with (acute) exacerbation; N39.0 Urinary tract infection, site not specified; E87.2 Acidosis; J84.9 Interstitial pulmonary disease, unspecified; J45.909 Unspecified asthma, uncomplicated; E11.649 Type 2 diabetes mellitus with hypoglycemia without coma; E11.22 Type 2 diabetes mellitus with diabetic chronic kidney disease; E87.5 Hyperkalemia; I70.209 Unspecified atherosclerosis of native arteries of extremities, unspecified extremity; L97.529 Non-pressure chronic ulcer of other part of left foot with unspecified severity; I25.5 Ischemic cardiomyopathy; E66.9 Obesity, unspecified; E11.51 Type 2 diabetes mellitus with diabetic peripheral angiopathy without gangrene; F41.9 Anxiety disorder, unspecified; G31.84 Mild cognitive impairment of uncertain or unknown etiology; T38.0X5A Adverse effect of glucocorticoids and synthetic analogues, initial encounter; N18.9 Chronic kidney disease, unspecified; K59.00 Constipation, unspecified; I25.10 Atherosclerotic heart disease of native coronary artery without angina pectoris; F17.210 Nicotine dependence, cigarettes, uncomplicated; E11.65 Type 2 diabetes mellitus with hyperglycemia; E11.42 Type 2 diabetes mellitus with diabetic polyneuropathy; Z88.2 Allergy status to sulfonamides; Z79.4 Long term (current) use of insulin; Z88.0 Allergy status to penicillin; Z79.82 Long term (current) use of aspirin; Z91.040 Latex allergy status; Z85.3 Personal history of malignant neoplasm of breast; Z95.5 Presence of coronary angioplasty implant and graft; Z98.890 Other specified postprocedural states; Z68.31 Body mass index [BMI] 31.0-31.9, adult; Z90.49 Acquired absence of other specified parts of digestive tract
CPT/HCPCS: 36415; 36569; 36600; 71010; 76937; 80048; 80053; 81001; 82375; 82805; 82962; 83036; 83605; 83735; 83880; 84100; 84484; 85025; 85379; 85610; 85730; 87040; 87077; 87086; 87186; 93005; 94003; 94640; 94660; 96374; 97110; 97162; 97166; 97530; 99291; A6261; C1725; C9113; J1200; J1650; J1815; J1940; J1956; J2060; J2920; J2930; J3490; J7050; J7512; J7620